=== PATIENT | male | born 1960 | race Caucasian/White ===

== ENCOUNTER 2022-05-10 01:20 | Inpatient (IN) | payer OTHER ==
[~2022-05-10] VITALS: Ht 170.2 cm; Wt 99.5 kg
[2022-05-10 01:20] VITALS: BP_SYST 127
[2022-05-10] MEDS ORDERED: MORPHINE 4 MG INJ. 4 MG/ML VIAL IVP ONE (01:27)
[2022-05-10] MEDS ORDERED: NITROGLYCERIN 1 INCH (GM) OINT. TP ONE (01:27)
[2022-05-10] MEDS ORDERED: ASPIRIN 325 MG TABLET PO ONE (01:30)
--- NOTE | 2022-05-10 01:49 | NUR ---
JERRY CHAVEZ FROM HOME.
--- NOTE | 2022-05-10 01:50 | NUR ---
PT IS HERE BECAUSE SHE HAS CAHEST PAIN FROM HOME AND IT IS 8/10. NON RADIATING ANYWHERE, DENIES [place] AND VOMITTING. PT IS ALRT AND ORIENTED X4. WAITING FOR
--- NOTE | 2022-05-10 02:01 | NUR ---
RT AT THE BEDSIDE.
--- NOTE | 2022-05-10 02:14 | NUR ---
PT PLACED ON 2L NC, PER MD REQUEST. O2 SAT AT 95%.
[2022-05-10 02:19] LABS: BASOPHILS # (AUTO) 0.1 K/uL (0.0-0.2); BASOPHILS % (AUTO) 0.5 % (0.0-2.0); EOSINOPHILS # (AUTO) 0.1 K/uL (0.0-0.4); EOSINOPHILS % (AUTO) 1.1 % (0.0-4.0); HEMATOCRIT 41.4 % (36-54); LYMPHOCYTES # (AUTO) 2.8 K/uL (1.0-5.5); MEAN CORPUSCULAR HEMOGLOBIN 30 pg (27-31); MEAN CORPUSCULAR HGB CONC 34 % (32-36); MEAN CORPUSCULAR VOLUME 90 fL (79.0-98.0); MONOCYTES % (AUTO) 8.9 % (1.7-9.3); NEUTROPHILS # (AUTO) 7.3 K/uL (1.8-7.7); NEUTROPHILS % (AUTO) 64.5 % (40.0-70.0); PLATELET COUNT (AUTO) 203 K/uL (130-430); RED BLOOD CELL COUNT(AUTO) 4.62 MIL/uL (4.2-6.2); RED CELL DISTRIBUTION WIDTH 13.3 % (9.0-15.0); WHITE BLOOD COUNT (AUTO) 11.4 K/uL (4.8-10.8)
[2022-05-10 02:25] LABS: ANION GAP 14 (5-15); CALCIUM 8.8 mg/dL (8.4-11.0); CHLORIDE 102 mmol/L (98-107); CREATININE 0.79 mg/dL (0.55-1.30); GFR AFRICAN AMERICAN 127 mL/min (>90); GLUCOSE 201 mg/dL (70-99); UREA NITROGEN, BLOOD 10 mg/dL (8-21)
[2022-05-10 02:35] LABS: ALANINE AMINOTRANSFERASE 36 U/L (12-78); ASPARTATE AMINOTRANSFERASE 11 U/L (10-37); TOTAL BILIRUBIN 0.3 mg/dL (0.0-1.0)
--- NOTE | 2022-05-10 03:17 | NUR ---
AT THE BEDSIDE.
[2022-05-10] MEDS ORDERED: iohexoL 350 mgI/mL, 100 ML INFUS..BTL IV ONE (03:44)
--- NOTE | 2022-05-10 05:23 | NUR ---
Anny adams in ED - 05/10/22 at 0524 by [id number] pt refusing to take marlin valentin aware
--- NOTE | 2022-05-10 07:15 | NUR ---
RECEIVED PT FROM BENJAMIN HERRERA. ASSUMED CARE. PT IS AAOX4. NSR ON THE MONITOR. HR 68. RESP E/U, SHALLOW. PT ON 02 N/C AT 2LPM. DENIES N/V/D/C. ABDOMEN SOFT, NONTENDER, NONDISTENDED. PERIPHERAL PULSES NORMAL, SKIN WARM, CDI, NO EDEMA. IV CATH 20 TO RAC S/L. SITE WNL. DENIES C/P, PRESSURE, PALPITATIONS AT THIS TIME. SIDERAILS UP X2. AT BEDSIDE.
[2022-05-10] MEDS ORDERED: ACETAMINOPHEN 325 MG TABLET PO PRN ×2 (07:30→09:00)
--- NOTE | 2022-05-10 07:34 | NUR ---
Admit bed requested Patient will be admitted to care of . Admitted to TELEMETRY unit. Diagnosis CHEST PAIN Inpatient (Yes or No) YES Observation (Yes or No) NO Orientation concerns or request close to nursing station (Yes or No) NO Covid Status NEGATIVE On vent or bipap NO Isolation requirements NONE Needs a sitter NO From Home (Yes or if No enter name of facility) YES Requires Dialysis (Yes or No) NO Med Rec Completed (Yes of No) YES
--- NOTE | 2022-05-10 08:22 | NUR ---
DR. KHOURY AT BEDSIDE TO ASSESS PT.
[2022-05-10 08:37] LABS: BILIRUBIN,URINE NEGATIVE (NEGATIVE); BLOOD, URINE NEGATIVE (NEGATIVE); CLARITY/URINE CLEAR (CLEAR); COLOR,URINE YELLOW (YELLOW); GLUCOSE,URINE NEGATIVE (NEGATIVE); KETONES,URINE 1+ (NEGATIVE); LEUKOCYTE ESTERASE ,URINE NEGATIVE (NEGATIVE); NITRITE, URINE NEGATIVE (NEGATIVE); PH,URINE 5.5 (5.0-8.0); PROTEIN URINE NEGATIVE (NEGATIVE); UROBILINOGEN,URINE 0.2 (0.2-1.0)
--- NOTE | 2022-05-10 08:37 | NUR ---
URINE OBTAINED AND TAKEN TO LAB.
[2022-05-10] MEDS ORDERED: ACETAMINOPHEN 325 MG TABLET ONE (08:41)
[2022-05-10 08:54] LABS: BARBITURATE, URINE NEGATIVE (NEG <=200); BENZODIAZEPINE, URINE NEGATIVE (NEG <=150); CANNABINOID, URINE NEGATIVE (NEG <=50); COCAINE, URINE NEGATIVE (NEG <=150); METHAMPHETAMINES SCREEN,URINE NEGATIVE (NEG <=500); OPIATE, URINE POSITIVE (NEG <=100); PHENCYCLIDINE SCREEN,URINE NEGATIVE (NEG <=25); UR TRICYCLIC ANTIDEPRESSANTS NEGATIVE (NEG <=300); URINE AMPHETAMINE NEGATIVE (NEG <=500); URINE METHADONE NEGATIVE (NEG <=200); URINE OXYCODONE SCREEN NEGATIVE (NEG <=100); URINE PROPOXYPHENE SCREEN NEGATIVE (NEG <=300)
--- NOTE | 2022-05-10 09:01 | NUR ---
TYLENOL 650MG PO GIVEN FOR BACK PAIN 04/30. PT REPOSITIONED FOR COMFORT.
--- NOTE | 2022-05-10 09:30 | NUR ---
SECOND EKG OBTAINED ORDERED BY DR. KHOURY AND GIVEN TO DR. KHOURY TO READ.
--- NOTE | 2022-05-10 10:00 | NUR ---
DR. ISAAC AT BEDSIDE TO ASSESS PT.
--- NOTE | 2022-05-10 10:00 | NUR ---
SPOKE TO DR. ARANDA BY PHONE AND MADE HIM AWARE THAT DR. RAMOS HAS REQUESTED TO HAVE HIM A CONSULT FOR THE PT. DR. ARANDA STATED HE HAS ALREADY ROUNDED AT [facility] AND WILL MOST LIKELY SEE THE PT TOMORROW MORNING. PT MADE AWARE. RECEIVED ORDER FOR [facility] Q 6 HOURS PRN. ORDER CARRIED OUT.
--- NOTE | 2022-05-10 10:33 | NUR ---
PT RECEIVING ECHO AT TH IS TIME.
[2022-05-10] MEDS ORDERED: IPRATROPIUM/ALBUTEROL SULFATE 3 ML AMPUL.NEB (DUONEB) INH PRN (11:00)
[2022-05-10] MEDS ORDERED: ASPIRIN 81 MG TAB.CHEW ONE (12:11)
[2022-05-10 12:51] VITALS: BP_SYST 134
[2022-05-10] MEDS ORDERED: NOREPINEPHRINE 4 MG/4 ML VIAL IV ONE (18:11)
--- NOTE | 2022-05-10 20:01 | NUR ---
ENDORSED PT TO BENJAMIN VILLALBA. ALL QUESTIONS AND CONCERNS ADDRESSED.
[2022-05-10] MEDS: traMADol HCL HCL 50 MG TABLET (ULTRAM) PO PRN (20:47)
[2022-05-10 21:00] VITALS: BP_SYST 141
[2022-05-10] MEDS ORDERED: MORPHINE 2 MG/ML INJ. SYRINGE IVP PRN (22:45)
[2022-05-10] MEDS ORDERED: ONDANSETRON HCL 4 MG/2 ML VIAL IVP PRN (22:45)
[2022-05-10] MEDS ORDERED: NALOXONE HCL 0.4 MG/ML AMP (NARCAN) IVP PRN (22:45)
[2022-05-10] MEDS ORDERED: TEMAZEPAM 15 MG CAPSULE PO PRN (22:45)
[2022-05-11 00:18] VITALS: BP_SYST 126
[2022-05-11] MEDS: traMADol HCL HCL 50 MG TABLET (ULTRAM) PO PRN ×2 (02:48→10:42)
[2022-05-11 02:51] LABS: THYROID STIMULATING HORMONE 1.19 uIu/mL (0.34-4.82)
[2022-05-11 08:00] VITALS: BP_SYST 139
--- NOTE | 2022-05-11 08:14 | NUR ---
Opening Notes: Patient in bed a/o x4. No s/s of distress or pain reported. Breathing is even and unlabored on RA 95%. Patient repositioned self sitting up to eat breakfast. Brought patient his tray. Updated patient board. All needs met at this time, safety checks made and call light within reach.
--- NOTE | 2022-05-11 08:16 | NUR ---
MD: Dr. Lanza at bedside talking with patient about his current status.
[2022-05-11] MEDS ORDERED: ASPIRIN 81 MG TAB.CHEW PO SCH (09:00)
--- NOTE | 2022-05-11 10:43 | NUR ---
Rounds: pt in bed. is at bedside. no s/s of distress. pain reported at 6 on left chest. Pt states that the pain happens when he takes a deep breath or tries to get up utilizing arms and hands. tramadol given at 1045am
[2022-05-11] MEDS ORDERED: MELO-89 PO (11:22)
[2022-05-11 11:44] VITALS: BP_SYST 143
--- NOTE | 2022-05-11 13:01 | NUR ---
DISCHARGED Patient discharged with in private auto
== END 2022-05-11 13:01 | disposition home or self-care (01) | DRG 206 ==
LOC: SED 01:20 → STU 07:24
PROVIDERS: ADMIT Internal Medicine; ATTEND Internal Medicine
DX: M94.0 Chondrocostal junction syndrome [Tietze] (principal); J98.11 Atelectasis; Z20.822 Contact with and (suspected) exposure to COVID-19
CPT/HCPCS: 36415; 36600; 71045; 71275; 76376; 80053; 80061; 80307; 81003; 82803-TC; 83880; 84443; 84484; 85025; 85379; 93005; 93306; 94760; 99285; G0378; J2270; Q9967